=== PATIENT | male | born 1980 | race American Indian/Alaskan Native ===

== ENCOUNTER 2017-05-26 15:04 | Emergency (ER) | payer OTHER ==
[2017-05-26 15:04] VITALS: BMI 48.4
[2017-05-26 15:09] VITALS: BP 119/91; PULSE 81; RESP 18; TEMP 98.8; O2SAT 97
--- NOTE | 2017-05-26 15:30 | C.PDOC ---
History Of Present Illness Grady Wade, a 37 year old male, presents to the ED with intermittent right hip pain he has been experiencing for the past several months. The patient states that within the past few weeks the pain has gotten much worse and it hurt to walk up stairs. He states that when he was 14 years old he had a hip surgery and was doing well for several years. Denies trauma, numbness, weakness , swelling, rash. PMD: Rodger Lee Jr. Time Seen by Provider: 05/26/17 15:28 Chief Complaint (Nursing): Hip Pain History Per: Patient History/Exam Limitations: no limitations Current Symptoms Are (Timing): Still Present Recent travel outside of the [place]: No Additional History Per: Patient Past Medical History Reviewed: Historical Data, Nursing Documentation, Vital Signs Vital Signs: Last Vital Signs Temp 98.8 F 05/26/17 15:07 Pulse 81 05/26/17 15:07 Resp 18 05/26/17 15:07 BP 119/91 H 05/26/17 15:07 Pulse Ox 97 05/26/17 17:03 - Medical History PMH: Asthma Surgical History: No Surg Hx - [facility] CYSTOSCOPY NEC (10/15/13) Family History: States: Unknown Family Hx - Social History Hx Alcohol Use: No Hx Substance Use: No Review Of Systems Musculoskeletal: Positive for: Other (Right hip pain) Neurological: Negative for: Weakness, Numbness Physical Exam - Physical Exam Appears: Well, Non-toxic, No Acute Distress Skin: Normal Color, Warm, Dry, No Jaundice Head: Atraumatic, Normacephalic, No Tenderness, No Swelling Eye(s): bilateral: Normal Inspection, PERRL, EOMI Oral Mucosa: Moist Neck: Normal ROM Extremity: Normal ROM, No Tenderness, Capillary Refill (<2 sec), No Swelling Neurological/Psych: Oriented x3, Normal Speech, Normal Cognition, Normal Motor, Normal Sensation Gait: Steady ED Course And Treatment O2 Sat by Pulse Oximetry: 97 (RA) Pulse Ox Interpretation: Normal Medical Decision Making Medical Decision Makin Xray performed shows arthritic changes. No evidence of acute fracture at this time. On re-exam patient has improvement of pain and is ambulatory with steady gait. Patient has orthopedist that he will be following up with in the next 2 weeks. Disposition - Disposition Referrals: Chata,Imran, MD [Staff Provider] - Disposition: HOME/ ROUTINE Disposition Time: 16:22 Condition: GOOD Additional Instructions: Follow up with the medical doctor within 1-2 days. Return if worsened. Prescriptions: Ibuprofen [Motrin] 600 mg PO TID #21 tab traMADol [Ultram] 50 mg PO Q6 PRN #20 tab PRN Reason: Pain Instructions: Hip Sprain (ED) Forms: [facility] (Puerto [place]ican), Work Excuse - Clinical Impression Clinical Impression: Hip pain - Scribe Statement The provider has reviewed the documentation as recorded by the Scribe Tuyet Juarez All medical record entries made by the Scribe were at my direction and personally dictated by me. I have reviewed the chart and agree that the record accurately reflects my personal performance of the history, physical exam, medical decision making, and the department course for this patient. I have also personally directed, reviewed, and agree with the discharge instructions and disposition.
[2017-05-26] MEDS ORDERED: Naproxen 550 mg Tab PO STA (15:31)
[2017-05-26] MEDS ORDERED: Naproxen 550 mg Tab PO ONE (15:37)
--- NOTE | 2017-05-26 16:14 | RAD ---
Indication: RIGHT hip pain, hx of surgery 15 years ago Right hip with pelvis Comparison: None available Findings: Examination limited by habitus. Deformity of the right femoral head. No acute displaced fracture identified. No acute displaced fracture or dislocation identified. Sacroiliac joints appear intact. No evidence of radiopaque foreign body. Impression: Examination limited by habitus. 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 No acute displaced fracture or dislocation evident. If high clinical index of suspicion, suggest cross-sectional imaging for further evaluation. Otherwise, if symptoms persist or if there is continued clinical concern, x-ray follow-up in 7-10 days should be considered.
== END 2017-05-26 17:04 | disposition home or self-care (01) ==
LOC: C.ER 15:04
DX: M25.551 Pain in right hip (principal)